=== PATIENT | male | born 1955 | race Caucasian/White ===

== ENCOUNTER 2017-02-02 10:07 | Emergency (ER) | payer MEDICAID ==
[~2017-02-02] VITALS: Ht 175.3 cm; Wt 100.7 kg
[2017-02-02] MEDS ORDERED: ONDANSETRON 2MG/ML, 2ML IVPush ONE (11:00)
[2017-02-02] MEDS ORDERED: MORPHINE SULFATE 4 MG/ML, 1ML IVPush PRN (11:00)
[2017-02-02] MEDS ORDERED: SODIUM CHLORIDE FLUSH 10ML SYR IVF ONE (11:00)
[2017-02-02] MEDS ORDERED: ONDANSETRON 2MG/ML, 2ML ONE (11:16)
[2017-02-02] MEDS ORDERED: morphine SULFATE 10 MG/ML, 1ML ONE (11:16)
[2017-02-02 11:23] LABS: HEMOGLOBIN 18.3 g/dL (13.7-18.0); WHITE BLOOD COUNT 8.4 x10^3/uL (3.4-10)
[2017-02-02 11:34] LABS: BLOOD UREA NITROGEN 8 mg/dL (7-18)
[2017-02-02 11:45] LABS: IS PT STATUS REG ER OR PRE ER? YES
[2017-02-02] MEDS ORDERED: AMLO10TA4 PO (11:51)
[2017-02-02] MEDS ORDERED: ATEN25TA PO (11:51)
[2017-02-02] MEDS ORDERED: NAPR500T4 PO (11:51)
[2017-02-02] MEDS ORDERED: ASPI81TA50 PO (11:51)
[2017-02-02] MEDS ORDERED: TRIA50CA PO (11:51)
[2017-02-02] MEDS ORDERED: OMNIPAQUE 350 MG/ML, 100ML BOTTLE ONE (12:19)
[2017-02-02 13:44] VITALS: BP 163/89
== END 2017-02-02 14:30 | disposition home or self-care (01) ==
LOC: ED 14:20
DX: S29.012A Strain of muscle and tendon of back wall of thorax, initial encounter (principal); I10 Essential (primary) hypertension; F17.210 Nicotine dependence, cigarettes, uncomplicated; G89.29 Other chronic pain; M54.9 Dorsalgia, unspecified; X58.XXXA Exposure to other specified factors, initial encounter; Y93.89 Activity, other specified; Y92.89 Other specified places as the place of occurrence of the external cause; Y99.8 Other external cause status
CPT/HCPCS: 36415; 71010; 71275; 74175; 80048; 81003; 82040; 84484; 85025; 93005; 96374; 96375; 99285; J2405; Q9967

== ENCOUNTER 2017-04-12 12:12 | Emergency (ER) | payer MEDICAID ==
[~2017-04-12] VITALS: Ht 175.3 cm; Wt 99.0 kg
[~2017-04-12 12:12] MED LIST: AMLO10TA4 PO; ASPI81TA50 PO; ATEN25TA PO; NAPR500T4 PO; TRIA50CA PO
[2017-04-12 12:14] VITALS: BP 152/92
[2017-04-12 13:40] LABS: BASOPHILS # (AUTO) 0.01 x10^3/uL (0-0.1); BASOPHILS % (AUTO) 0 % (0-1); EOSINOPHILS # (AUTO) 0.15 x10^3/uL (0-0.4); EOSINOPHILS % (AUTO) 2 % (1-7); LYMPHOCYTES # (AUTO) 1.57 x10^3/uL (1-3.4); LYMPHOCYTES % (AUTO) 15 % (22-44); MD NO; MEAN CORPUSCULAR HEMOGLOBIN 29.9 pg (27.5-34.5); MEAN CORPUSCULAR HGB CONC 33.8 g/dL (33.2-36.2); MEAN CORPUSCULAR VOLUME 88.6 fL (81-97); MEAN PLATELET VOLUME 7.8 fL (7.4-10.4); MONOCYTES # (AUTO) 0.61 x10^3/uL (0.2-0.8); MONOCYTES % (AUTO) 6 % (2-9); NEUTROPHILS % (AUTO) 77 % (42-75); PLATELET COUNT 350 x10^3/uL (130-400); RED BLOOD COUNT 6.07 x10^6/uL (4.38-5.82); RED CELL DISTRIBUTION WIDTH 13.6 % (9.4-14.8)
[2017-04-12 13:51] LABS: ALANINE AMINOTRANSFERASE 61 U/L (12-78); ALBUMIN 4.2 g/dL (3.4-5.0); ANION GAP 10 mmol/L (5-15); CALCIUM 8.6 mg/dL (8.5-10.1); CHLORIDE 92 mmol/L (98-107); CREATININE 1.32 mg/dL (0.7-1.3)
[2017-04-12 13:53] LABS: ALKALINE PHOSPHATASE 45 U/L (45-117); BILIRUBIN,TOTAL 1.1 mg/dL (0.2-1.0)
[2017-04-12 15:39] LABS: MICROSCOPIC INDICATED
[2017-04-12 15:44] LABS: CULTURE INDICATED? NO
== END 2017-04-12 17:45 | disposition home or self-care (01) ==
LOC: ED 17:14
DX: N23 Unspecified renal colic (principal); R31.9 Hematuria, unspecified; I10 Essential (primary) hypertension
CPT/HCPCS: 36415; 74018; 74176; 76770; 80053; 81001; 85025; 99285

== ENCOUNTER 2017-04-14 04:55 | Emergency (ER) | payer MEDICAID ==
[~2017-04-14] VITALS: Ht 175.3 cm; Wt 99.0 kg
[2017-04-14 06:13] LABS: MICROSCOPIC NOT IND
[2017-04-14 06:16] LABS: CULTURE INDICATED? NO
[2017-04-14 06:29] LABS: BASOPHILS # (AUTO) 0.02 x10^3/uL (0-0.1); BASOPHILS % (AUTO) 0 % (0-1); EOSINOPHILS # (AUTO) 0.16 x10^3/uL (0-0.4); EOSINOPHILS % (AUTO) 2 % (1-7); LYMPHOCYTES % (AUTO) 12 % (22-44); MD NO; MEAN CORPUSCULAR HEMOGLOBIN 30.3 pg (27.5-34.5); MEAN CORPUSCULAR HGB CONC 34.7 g/dL (33.2-36.2); MEAN CORPUSCULAR VOLUME 87.5 fL (81-97); MEAN PLATELET VOLUME 7.8 fL (7.4-10.4); MONOCYTES # (AUTO) 0.59 x10^3/uL (0.2-0.8); MONOCYTES % (AUTO) 8 % (2-9); NEUTROPHILS # (AUTO) 6.14 x10^3/uL (1.8-6.8); NEUTROPHILS % (AUTO) 79 % (42-75); PLATELET COUNT 322 x10^3/uL (130-400); RED BLOOD COUNT 5.65 x10^6/uL (4.38-5.82); RED CELL DISTRIBUTION WIDTH 13.5 % (9.4-14.8)
[2017-04-14 06:37] LABS: ALBUMIN 3.7 g/dL (3.4-5.0); ANION GAP 9 mmol/L (5-15); CALCIUM 8.4 mg/dL (8.5-10.1); CHLORIDE 92 mmol/L (98-107); CREATININE 1.14 mg/dL (0.7-1.3)
[2017-04-14] MEDS ORDERED: POTASSIUM CHLORIDE 20 MEQ TAB.ER.PRT PO ONE (07:00)
[2017-04-14 07:49] VITALS: BP 125/78
== END 2017-04-14 07:55 | disposition home or self-care (01) ==
LOC: ED 06:18
DX: R33.9 Retention of urine, unspecified (principal); E87.6 Hypokalemia; E87.1 Hypo-osmolality and hyponatremia; I10 Essential (primary) hypertension; Z88.0 Allergy status to penicillin
CPT/HCPCS: 36415; 80048; 81003; 82040; 85025; 99284

== ENCOUNTER 2017-04-20 02:12 | Emergency (ER) | payer MEDICAID ==
[~2017-04-20] VITALS: Ht 175.3 cm; Wt 96.4 kg
[2017-04-20 03:10] LABS: ALBUMIN 3.6 g/dL (3.4-5.0); ANION GAP 9 mmol/L (5-15); CALCIUM 8.7 mg/dL (8.5-10.1); CHLORIDE 105 mmol/L (98-107); CREATININE 1.32 mg/dL (0.7-1.3)
[2017-04-20 03:56] LABS: BASOPHILS # (AUTO) 0.04 x10^3/uL (0-0.1); BASOPHILS % (AUTO) 0 % (0-1); EOSINOPHILS # (AUTO) 0.41 x10^3/uL (0-0.4); EOSINOPHILS % (AUTO) 4 % (1-7); LYMPHOCYTES % (AUTO) 17 % (22-44); MD NO; MEAN CORPUSCULAR HEMOGLOBIN 30.3 pg (27.5-34.5); MEAN CORPUSCULAR HGB CONC 33.8 g/dL (33.2-36.2); MEAN CORPUSCULAR VOLUME 89.5 fL (81-97); MEAN PLATELET VOLUME 7.9 fL (7.4-10.4); MONOCYTES # (AUTO) 0.72 x10^3/uL (0.2-0.8); MONOCYTES % (AUTO) 6 % (2-9); NEUTROPHILS # (AUTO) 8.13 x10^3/uL (1.8-6.8); NEUTROPHILS % (AUTO) 73 % (42-75); PLATELET COUNT 354 x10^3/uL (130-400); RED BLOOD COUNT 5.82 x10^6/uL (4.38-5.82)
[2017-04-20 04:21] LABS: CULTURE INDICATED? YES; MICROSCOPIC INDICATED
[2017-04-20] MEDS ORDERED: CIPROFLOXACIN 500 MG TABLET PO ONE (04:30)
[2017-04-20] MEDS ORDERED: POTASSIUM CHLORIDE 20 MEQ TAB.ER.PRT PO ONE (04:30)
[2017-04-20] MEDS ORDERED: CIPROFLOXACIN 500 MG TABLET ONE (04:37)
[2017-04-20] MEDS ORDERED: POTASSIUM CHLORIDE 20 MEQ TAB.ER.PRT ONE (04:37)
[2017-04-20 04:54] VITALS: BP 146/81
== END 2017-04-20 04:56 | disposition home or self-care (01) ==
LOC: ED 03:15
DX: N30.01 Acute cystitis with hematuria (principal); E87.6 Hypokalemia; I10 Essential (primary) hypertension; F17.210 Nicotine dependence, cigarettes, uncomplicated
CPT/HCPCS: 36415; 80048; 81001; 82040; 85025; 87077; 87086; 87186; 99284

== ENCOUNTER → 2017-05-30 | Outpatient (CLI) | payer MEDICAID | LOC: CFH 08:53 | PROVIDERS: ATTEND Physician Assistant | DX: Z02.9 Encounter for administrative examinations, unspecified (principal) ==

== ENCOUNTER 2017-05-31 15:53 | Inpatient (IN) | payer MEDICAID ==
[~2017-05-31] VITALS: Ht 175.3 cm; Wt 87.0 kg
[2017-05-31 17:24] LABS: MEAN CORPUSCULAR HEMOGLOBIN 29.1 pg (27.5-34.5); MEAN CORPUSCULAR HGB CONC 33.2 g/dL (33.2-36.2); MEAN CORPUSCULAR VOLUME 87.7 fL (81-97); MEAN PLATELET VOLUME 8.6 fL (7.4-10.4); PLATELET COUNT 283 x10^3/uL (130-400); RED BLOOD COUNT 5.93 x10^6/uL (4.38-5.82); RED CELL DISTRIBUTION WIDTH 13.5 % (9.4-14.8)
[2017-05-31 17:29] LABS: CULTURE INDICATED? YES; MICROSCOPIC INDICATED
[2017-05-31] MEDS ORDERED: CEFTRIAXONE PMX 1GM/50ML 50 ML IVPB ONE (17:30)
[2017-05-31 17:33] LABS: ALBUMIN 3.3 g/dL (3.4-5.0); ANION GAP 18 mmol/L (5-15); CALCIUM 7.6 mg/dL (8.5-10.1); CHLORIDE 101 mmol/L (98-107)
[2017-05-31 17:45] LABS: ALANINE AMINOTRANSFERASE 29 U/L (12-78); ALKALINE PHOSPHATASE 61 U/L (45-117); BILIRUBIN,TOTAL 0.7 mg/dL (0.2-1.0); CREATININE 9.75 mg/dL (0.7-1.3); FREE T4 (FREE THYROXINE) 1.14 ng/dL (0.76-1.46); TOTAL PROTEIN 7.4 g/dL (6.4-8.2)
[2017-05-31 18:17] LABS: BASOPHILS # (AUTO) 0.01 x10^3/uL (0-0.1); BASOPHILS % (AUTO) 0 % (0-1); EOSINOPHILS # (AUTO) 0.06 x10^3/uL (0-0.4); EOSINOPHILS % (AUTO) 0 % (1-7); LYMPHOCYTES # (AUTO) 0.76 x10^3/uL (1-3.4); LYMPHOCYTES % (AUTO) 4 % (22-44); MD SCAN; MONOCYTES # (AUTO) 1.12 x10^3/uL (0.2-0.8); MONOCYTES % (AUTO) 6 % (2-9); NEUTROPHILS # (AUTO) 15.97 x10^3/uL (1.8-6.8); NEUTROPHILS % (AUTO) 89 % (42-75)
[2017-05-31] MEDS ORDERED: CEFTRIAXONE PMX 1GM/50ML 50 ML ONE (19:39)
[2017-05-31] MEDS ORDERED: POLYETHYLENE GLYCOL 17 GM PACKET PO PRN (20:00)
[2017-05-31] MEDS ORDERED: CEFTRIAXONE PMX 1GM/50ML 50 ML IV SCH (20:00)
[2017-05-31] MEDS ORDERED: hydrALAzine 20 MG/ML, 1ML IVPush PRN (20:00)
[2017-05-31] MEDS ORDERED: ACETAMINOPHEN 325 MG TABLET PO PRN (20:00)
[2017-05-31] MEDS ORDERED: BISACODYL 10 MG SUPP PR PRN (20:00)
[2017-05-31] MEDS: SODIUM BICARBONATE 8.4% 150 MEQ in DEXTROSE 5% 1,000 ML IV SCH (20:19)
[2017-05-31] MEDS: HEPARIN 5,000 UNITS/ML, 1ML SQ SCH (23:45)
[2017-05-31] MEDS: NICOTINE 14MG/24 HR PATCH.TD24 TD SCH (23:46)
[2017-05-31] MEDS: ONDANSETRON 2MG/ML, 2ML IVPush PRN (23:46)
[2017-06-01] VITALS (7 sets, daily range): BP systolic 81–101; BP diastolic 46–66
[2017-06-01] MEDS: SODIUM BICARBONATE 8.4% 150 MEQ in DEXTROSE 5% 1,000 ML IV SCH (05:09)
[2017-06-01] MEDS: ONDANSETRON 2MG/ML, 2ML IVPush PRN ×2 (05:24→13:14)
[2017-06-01 05:47] LABS: BASOPHILS # (AUTO) 0.01 x10^3/uL (0-0.1); BASOPHILS % (AUTO) 0 % (0-1); EOSINOPHILS # (AUTO) 0.02 x10^3/uL (0-0.4); EOSINOPHILS % (AUTO) 0 % (1-7); LYMPHOCYTES # (AUTO) 0.77 x10^3/uL (1-3.4); LYMPHOCYTES % (AUTO) 5 % (22-44); MD NO; MEAN CORPUSCULAR HEMOGLOBIN 29.4 pg (27.5-34.5); MEAN CORPUSCULAR HGB CONC 34.5 g/dL (33.2-36.2); MEAN CORPUSCULAR VOLUME 85.3 fL (81-97); MEAN PLATELET VOLUME 8.8 fL (7.4-10.4); MONOCYTES # (AUTO) 1.23 x10^3/uL (0.2-0.8); MONOCYTES % (AUTO) 8 % (2-9); NEUTROPHILS # (AUTO) 13.21 x10^3/uL (1.8-6.8); NEUTROPHILS % (AUTO) 87 % (42-75); PLATELET COUNT 235 x10^3/uL (130-400); RED BLOOD COUNT 4.91 x10^6/uL (4.38-5.82); RED CELL DISTRIBUTION WIDTH 13.8 % (9.4-14.8)
[2017-06-01 05:54] LABS: ALBUMIN 2.7 g/dL (3.4-5.0); CALCIUM 6.9 mg/dL (8.5-10.1); CHLORIDE 99 mmol/L (98-107)
[2017-06-01 06:01] LABS: ALANINE AMINOTRANSFERASE 20 U/L (12-78); ALKALINE PHOSPHATASE 50 U/L (45-117); ANION GAP 16 mmol/L (5-15); BILIRUBIN,TOTAL 0.8 mg/dL (0.2-1.0); CREATININE 7.27 mg/dL (0.7-1.3)
[2017-06-01] MEDS ORDERED: POTASSIUM CHLORIDE 20 MEQ TAB.ER.PRT PO ONE ×2 (08:30→15:30)
[2017-06-01] MEDS ORDERED: SODIUM CHLORIDE 0.9% 1,000 ML IV SCH (08:30)
[2017-06-01] MEDS ORDERED: CEFTRIAXONE 2 GM in SODIUM CHLORIDE 0.9% 50 ML IV SCH (09:00)
[2017-06-01] MEDS ORDERED: ALBUMIN HUMAN 25%, 25GM/100ML IV PRN (09:30)
[2017-06-01] MEDS ORDERED: POTASSIUM CHLORIDE 20 MEQ TAB.ER.PRT ONE (12:50)
[2017-06-01] MEDS: POTASSIUM CHLORIDE 40 MEQ in SODIUM CHLORIDE 0.9% 1,000 ML IV SCH (12:58)
[2017-06-01] MEDS: SENNA/DOCUSATE TABLET PO SCH (12:59)
[2017-06-01] MEDS: ASPIRIN 81 MG TABLET EC PO SCH (12:59)
[2017-06-01] MEDS: HEPARIN 5,000 UNITS/ML, 1ML SQ SCH ×2 (13:00→19:58)
[2017-06-01] MEDS ORDERED: MAGNESIUM SULFATE PMX 2GM/50ML 50 ML IV ONE (13:30)
[2017-06-01] MEDS ORDERED: PHARMACY MAY ADJ FOR RENAL FX MC PRN (15:30)
[2017-06-01] MEDS: CEFTRIAXONE PMX 2GM/50ML 50 ML IVPB SCH (16:46)
[2017-06-01] MEDS: PANTOPRAZOLE 40 MG IV IVPush SCH (16:46)
[2017-06-01] MEDS: NICOTINE 14MG/24 HR PATCH.TD24 TD SCH (19:58)
[2017-06-02] MEDS: POTASSIUM CHLORIDE 40 MEQ in SODIUM CHLORIDE 0.9% 1,000 ML IV SCH (00:29)
[2017-06-02 02:23] VITALS: BP 98/53
[2017-06-02] MEDS: OXYcodone IR 5MG TABLET PO PRN (03:30)
[2017-06-02] MEDS: PANTOPRAZOLE 40 MG IV IVPush SCH ×2 (04:44→15:51)
[2017-06-02] MEDS: HEPARIN 5,000 UNITS/ML, 1ML SQ SCH ×3 (04:45→23:04)
[2017-06-02 05:25] LABS: ANION GAP 9 mmol/L (5-15); CALCIUM 6.9 mg/dL (8.5-10.1); CHLORIDE 108 mmol/L (98-107); CREATININE 5.26 mg/dL (0.7-1.3)
[2017-06-02 05:35] LABS: BASOPHILS # (AUTO) 0.01 x10^3/uL (0-0.1); BASOPHILS % (AUTO) 0 % (0-1); EOSINOPHILS # (AUTO) 0.05 x10^3/uL (0-0.4); EOSINOPHILS % (AUTO) 1 % (1-7); LYMPHOCYTES # (AUTO) 0.74 x10^3/uL (1-3.4); LYMPHOCYTES % (AUTO) 7 % (22-44); MD NO; MEAN CORPUSCULAR HEMOGLOBIN 29.6 pg (27.5-34.5); MEAN CORPUSCULAR HGB CONC 33.9 g/dL (33.2-36.2); MEAN CORPUSCULAR VOLUME 87.3 fL (81-97); MEAN PLATELET VOLUME 8.7 fL (7.4-10.4); MONOCYTES # (AUTO) 0.81 x10^3/uL (0.2-0.8); MONOCYTES % (AUTO) 8 % (2-9); NEUTROPHILS # (AUTO) 8.53 x10^3/uL (1.8-6.8); NEUTROPHILS % (AUTO) 84 % (42-75); PLATELET COUNT 210 x10^3/uL (130-400); RED BLOOD COUNT 4.01 x10^6/uL (4.38-5.82); RED CELL DISTRIBUTION WIDTH 14.1 % (9.4-14.8)
[2017-06-02 08:00] VITALS: BP 99/54
[2017-06-02] MEDS: TAMSULOSIN 0.4 MG CAP.ER.24H PO SCH (09:00)
[2017-06-02] MEDS: SENNA/DOCUSATE TABLET PO SCH (09:00)
[2017-06-02] MEDS: ASPIRIN 81 MG TABLET EC PO SCH (09:00)
[2017-06-02] MEDS: ONDANSETRON 2MG/ML, 2ML IVPush PRN (09:10)
[2017-06-02 12:14] VITALS: BP 113/67
[2017-06-02] MEDS ORDERED: POTASSIUM CHLORIDE 40 MEQ in SODIUM CHLORIDE 0.9% 1,000 ML IV SCH (15:00)
[2017-06-02] MEDS: NS + 40MEQ KCL 1,000 ML IV SCH (15:30)
[2017-06-02] MEDS: CEFTRIAXONE PMX 2GM/50ML 50 ML IVPB SCH (15:49)
[2017-06-02] MEDS ORDERED: MIDAZOLAM 1 MG/ML, 2ML ONE (19:16)
[2017-06-02] MEDS ORDERED: FENTANYL PF 100 MCG/2ML ONE (19:17)
[2017-06-02] MEDS ORDERED: DEXAMETHASONE 4 MG/ML, 1ML ONE (19:49)
[2017-06-02] MEDS ORDERED: PROPOFOL 10 MG/ML, 20ML ONE ×2 (19:49→20:00)
[2017-06-02] MEDS ORDERED: ONDANSETRON 2MG/ML, 2ML ONE (19:49)
[2017-06-02] MEDS ORDERED: OMNIPAQUE 350 MG/ML, 50 ML BOTTLE IV ONE ×2 (20:00→20:01)
[2017-06-02 20:51] VITALS: BP 117/72
[2017-06-02] MEDS: NICOTINE 14MG/24 HR PATCH.TD24 TD SCH (21:30)
[2017-06-03 01:48] VITALS: BP 114/71
[2017-06-03] MEDS: OXYcodone IR 5MG TABLET PO PRN (04:30)
[2017-06-03] MEDS: PANTOPRAZOLE 40 MG IV IVPush SCH (04:32)
[2017-06-03 05:35] LABS: BASOPHILS # (AUTO) 0.02 x10^3/uL (0-0.1); BASOPHILS % (AUTO) 0 % (0-1); EOSINOPHILS % (AUTO) 0 % (1-7); LYMPHOCYTES # (AUTO) 0.43 x10^3/uL (1-3.4); LYMPHOCYTES % (AUTO) 6 % (22-44); MD NO; MEAN CORPUSCULAR HEMOGLOBIN 29.2 pg (27.5-34.5); MEAN CORPUSCULAR HGB CONC 33.5 g/dL (33.2-36.2); MEAN CORPUSCULAR VOLUME 87.2 fL (81-97); MEAN PLATELET VOLUME 8.8 fL (7.4-10.4); MONOCYTES # (AUTO) 0.32 x10^3/uL (0.2-0.8); MONOCYTES % (AUTO) 4 % (2-9); NEUTROPHILS # (AUTO) 6.79 x10^3/uL (1.8-6.8); NEUTROPHILS % (AUTO) 90 % (42-75); PLATELET COUNT 209 x10^3/uL (130-400); RED BLOOD COUNT 4.08 x10^6/uL (4.38-5.82); RED CELL DISTRIBUTION WIDTH 14.5 % (9.4-14.8)
[2017-06-03] MEDS: NS + 40MEQ KCL 1,000 ML IV SCH (05:37)
[2017-06-03 05:38] LABS: ANION GAP 10 mmol/L (5-15); CALCIUM 7.9 mg/dL (8.5-10.1); CHLORIDE 108 mmol/L (98-107); CREATININE 3.66 mg/dL (0.7-1.3)
[2017-06-03] MEDS: HEPARIN 5,000 UNITS/ML, 1ML SQ SCH ×3 (07:00→22:56)
[2017-06-03 08:00] VITALS: BP 137/75
[2017-06-03] MEDS: SENNA/DOCUSATE TABLET PO SCH (08:24)
[2017-06-03] MEDS: ASPIRIN 81 MG TABLET EC PO SCH (08:24)
[2017-06-03] MEDS: TAMSULOSIN 0.4 MG CAP.ER.24H PO SCH ×2 (08:24→08:49)
[2017-06-03] MEDS ORDERED: POTASSIUM CHLORIDE 40 MEQ in SODIUM CHLORIDE 0.9% 1,000 ML IV SCH (08:30)
[2017-06-03 10:18] LABS: OCCULT BLOOD NEGATIVE (NEGATIVE)
[2017-06-03] MEDS: SODIUM CHLORIDE 0.9% 1,000 ML IV SCH (13:08)
[2017-06-03 13:21] VITALS: BP 115/68
[2017-06-03] MEDS: CEFTRIAXONE PMX 2GM/50ML 50 ML IVPB SCH (16:02)
[2017-06-03] MEDS: PANTOPRAZOLE 20MG TABLET PO SCH (16:02)
[2017-06-03 19:05] VITALS: BP 122/70
[2017-06-03] MEDS: NICOTINE 14MG/24 HR PATCH.TD24 TD SCH (21:30)
[2017-06-04 02:06] VITALS: BP 158/93
[2017-06-04] MEDS: SODIUM CHLORIDE 0.9% 1,000 ML IV SCH (03:50)
[2017-06-04] MEDS: PANTOPRAZOLE 20MG TABLET PO SCH ×2 (03:50→16:10)
[2017-06-04] MEDS: OXYcodone IR 5MG TABLET PO PRN (03:59)
[2017-06-04 04:42] LABS: ANION GAP 8 mmol/L (5-15); CALCIUM 7.1 mg/dL (8.5-10.1); CHLORIDE 113 mmol/L (98-107); CREATININE 2.91 mg/dL (0.7-1.3)
[2017-06-04 07:41] VITALS: BP 148/75
[2017-06-04] MEDS: SENNA/DOCUSATE TABLET PO SCH (09:07)
[2017-06-04] MEDS: TAMSULOSIN 0.4 MG CAP.ER.24H PO SCH (09:07)
[2017-06-04] MEDS: ASPIRIN 81 MG TABLET EC PO SCH (09:08)
[2017-06-04] MEDS: HEPARIN 5,000 UNITS/ML, 1ML SQ SCH ×2 (09:08→16:56)
[2017-06-04] MEDS: SODIUM CHLORIDE 0.45% 1,000 ML IV SCH (12:49)
[2017-06-04 14:36] VITALS: BP 136/76
[2017-06-04] MEDS: CEFTRIAXONE PMX 2GM/50ML 50 ML IVPB SCH (16:56)
[2017-06-04 19:56] VITALS: BP 145/78
[2017-06-04] MEDS: NICOTINE 14MG/24 HR PATCH.TD24 TD SCH (21:30)
[2017-06-05] MEDS: SODIUM CHLORIDE 0.45% 1,000 ML IV SCH ×2 (00:48→16:30)
[2017-06-05] MEDS: HEPARIN 5,000 UNITS/ML, 1ML SQ SCH ×3 (00:48→16:29)
[2017-06-05 02:00] VITALS: BP 127/71
[2017-06-05] MEDS: PANTOPRAZOLE 20MG TABLET PO SCH ×2 (04:32→16:29)
[2017-06-05 05:19] LABS: ALANINE AMINOTRANSFERASE 23 U/L (12-78); ALBUMIN 2.6 g/dL (3.4-5.0); ANION GAP 9 mmol/L (5-15); CALCIUM 7.4 mg/dL (8.5-10.1); CHLORIDE 111 mmol/L (98-107); CREATININE 2.35 mg/dL (0.7-1.3)
[2017-06-05 05:24] LABS: ALKALINE PHOSPHATASE 40 U/L (45-117); BILIRUBIN,TOTAL 0.4 mg/dL (0.2-1.0); GAMMA GLUTAMYL TRANSPEPTIDASE 14 U/L (15-85)
[2017-06-05 05:27] LABS: BASOPHILS # (AUTO) 0.05 x10^3/uL (0-0.1); BASOPHILS % (AUTO) 1 % (0-1); EOSINOPHILS # (AUTO) 0.35 x10^3/uL (0-0.4); EOSINOPHILS % (AUTO) 7 % (1-7); LYMPHOCYTES # (AUTO) 1.17 x10^3/uL (1-3.4); LYMPHOCYTES % (AUTO) 22 % (22-44); MD NO; MEAN CORPUSCULAR HEMOGLOBIN 29.6 pg (27.5-34.5); MEAN CORPUSCULAR HGB CONC 33.9 g/dL (33.2-36.2); MEAN CORPUSCULAR VOLUME 87.3 fL (81-97); MEAN PLATELET VOLUME 7.8 fL (7.4-10.4); MONOCYTES # (AUTO) 0.35 x10^3/uL (0.2-0.8); MONOCYTES % (AUTO) 7 % (2-9); NEUTROPHILS # (AUTO) 3.51 x10^3/uL (1.8-6.8); NEUTROPHILS % (AUTO) 65 % (42-75); PLATELET COUNT 233 x10^3/uL (130-400); RED CELL DISTRIBUTION WIDTH 14.2 % (9.4-14.8)
[2017-06-05 07:05] VITALS: BP 172/83
[2017-06-05] MEDS: ASPIRIN 81 MG TABLET EC PO SCH (08:42)
[2017-06-05] MEDS: SENNA/DOCUSATE TABLET PO SCH (08:43)
[2017-06-05] MEDS: TAMSULOSIN 0.4 MG CAP.ER.24H PO SCH (08:43)
[2017-06-05] MEDS ORDERED: MAGNESIUM SULFATE PMX 4GM/100M 100 ML IV ONE (09:00)
[2017-06-05] MEDS: MAGNESIUM OXIDE 400 MG TABLET PO SCH ×2 (09:56→21:00)
[2017-06-05 10:27] VITALS: BP 125/70
[2017-06-05 13:01] VITALS: BP 135/81
[2017-06-05] MEDS: CEFTRIAXONE PMX 2GM/50ML 50 ML IVPB SCH (17:22)
[2017-06-05 19:15] VITALS: BP 149/91
[2017-06-05] MEDS: NICOTINE 14MG/24 HR PATCH.TD24 TD SCH (21:01)
[2017-06-06] MEDS: HEPARIN 5,000 UNITS/ML, 1ML SQ SCH ×3 (00:34→17:39)
[2017-06-06 01:51] VITALS: BP 165/90
[2017-06-06] MEDS: PANTOPRAZOLE 20MG TABLET PO SCH ×2 (04:56→16:32)
[2017-06-06 05:32] LABS: BASOPHILS # (AUTO) 0.03 x10^3/uL (0-0.1); BASOPHILS % (AUTO) 1 % (0-1); EOSINOPHILS # (AUTO) 0.28 x10^3/uL (0-0.4); EOSINOPHILS % (AUTO) 6 % (1-7); LYMPHOCYTES # (AUTO) 1.01 x10^3/uL (1-3.4); LYMPHOCYTES % (AUTO) 20 % (22-44); MD NO; MEAN CORPUSCULAR HEMOGLOBIN 29.5 pg (27.5-34.5); MEAN CORPUSCULAR HGB CONC 33.9 g/dL (33.2-36.2); MEAN CORPUSCULAR VOLUME 87.1 fL (81-97); MEAN PLATELET VOLUME 7.3 fL (7.4-10.4); MONOCYTES # (AUTO) 0.41 x10^3/uL (0.2-0.8); MONOCYTES % (AUTO) 8 % (2-9); NEUTROPHILS # (AUTO) 3.32 x10^3/uL (1.8-6.8); NEUTROPHILS % (AUTO) 66 % (42-75); PLATELET COUNT 235 x10^3/uL (130-400); RED BLOOD COUNT 4.18 x10^6/uL (4.38-5.82); RED CELL DISTRIBUTION WIDTH 14.5 % (9.4-14.8)
[2017-06-06 05:33] LABS: ALANINE AMINOTRANSFERASE 61 U/L (12-78); ALBUMIN 2.7 g/dL (3.4-5.0); ANION GAP 7 mmol/L (5-15); CALCIUM 7.1 mg/dL (8.5-10.1); CHLORIDE 109 mmol/L (98-107)
[2017-06-06 05:36] LABS: ALKALINE PHOSPHATASE 44 U/L (45-117); BILIRUBIN,TOTAL 0.6 mg/dL (0.2-1.0); CREATININE 1.91 mg/dL (0.7-1.3)
[2017-06-06 08:00] VITALS: BP 148/93
[2017-06-06] MEDS: SENNA/DOCUSATE TABLET PO SCH (09:25)
[2017-06-06] MEDS: TAMSULOSIN 0.4 MG CAP.ER.24H PO SCH (09:25)
[2017-06-06] MEDS: MAGNESIUM OXIDE 400 MG TABLET PO SCH ×2 (09:25→20:09)
[2017-06-06] MEDS: ASPIRIN 81 MG TABLET EC PO SCH (09:25)
[2017-06-06] MEDS ORDERED: ERGOCALCIFEROL 50,000 UNIT CAPSULE PO SCH (11:30)
[2017-06-06 14:30] VITALS: BP 126/68
[2017-06-06] MEDS: CEFTRIAXONE PMX 2GM/50ML 50 ML IVPB SCH (16:32)
[2017-06-06] MEDS: OXYcodone IR 5MG TABLET PO PRN (17:45)
[2017-06-06 20:00] VITALS: BP 132/72
[2017-06-06] MEDS: NICOTINE 14MG/24 HR PATCH.TD24 TD SCH (20:09)
[2017-06-07 02:30] VITALS: BP 128/70
[2017-06-07] MEDS: PANTOPRAZOLE 20MG TABLET PO SCH ×2 (05:24→18:00)
[2017-06-07] MEDS: HEPARIN 5,000 UNITS/ML, 1ML SQ SCH ×3 (05:24→16:43)
[2017-06-07 07:20] VITALS: BP 147/91
[2017-06-07] MEDS: SENNA/DOCUSATE TABLET PO SCH ×2 (08:50→09:12)
[2017-06-07] MEDS: TAMSULOSIN 0.4 MG CAP.ER.24H PO SCH (08:50)
[2017-06-07] MEDS: MAGNESIUM OXIDE 400 MG TABLET PO SCH ×2 (09:02→21:20)
[2017-06-07] MEDS: ASPIRIN 81 MG TABLET EC PO SCH (09:31)
[2017-06-07 13:03] LABS: MICROSCOPIC INDICATED
[2017-06-07 13:17] LABS: CULTURE INDICATED? YES
[2017-06-07 15:01] VITALS: BP 153/92
[2017-06-07] MEDS: OXYcodone IR 5MG TABLET PO PRN ×2 (15:16→21:20)
[2017-06-07] MEDS: CEFTRIAXONE PMX 2GM/50ML 50 ML IVPB SCH (16:43)
[2017-06-07 20:45] VITALS: BP 156/95
[2017-06-07] MEDS: NICOTINE 14MG/24 HR PATCH.TD24 TD SCH (21:21)
[2017-06-08] MEDS: HEPARIN 5,000 UNITS/ML, 1ML SQ SCH ×2 (01:02→08:34)
[2017-06-08 03:10] VITALS: BP 146/93
[2017-06-08] MEDS: PANTOPRAZOLE 20MG TABLET PO SCH (05:42)
[2017-06-08 06:11] LABS: BASOPHILS # (AUTO) 0.04 x10^3/uL (0-0.1); BASOPHILS % (AUTO) 1 % (0-1); EOSINOPHILS # (AUTO) 0.29 x10^3/uL (0-0.4); EOSINOPHILS % (AUTO) 7 % (1-7); LYMPHOCYTES # (AUTO) 1.04 x10^3/uL (1-3.4); LYMPHOCYTES % (AUTO) 26 % (22-44); MD NO; MEAN CORPUSCULAR HEMOGLOBIN 29.4 pg (27.5-34.5); MEAN CORPUSCULAR VOLUME 86.4 fL (81-97); MEAN PLATELET VOLUME 7.3 fL (7.4-10.4); MONOCYTES # (AUTO) 0.44 x10^3/uL (0.2-0.8); MONOCYTES % (AUTO) 11 % (2-9); NEUTROPHILS # (AUTO) 2.27 x10^3/uL (1.8-6.8); NEUTROPHILS % (AUTO) 56 % (42-75); PLATELET COUNT 213 x10^3/uL (130-400); RED BLOOD COUNT 4.04 x10^6/uL (4.38-5.82); RED CELL DISTRIBUTION WIDTH 14.1 % (9.4-14.8)
[2017-06-08 06:24] LABS: ALANINE AMINOTRANSFERASE 103 U/L (12-78); ALBUMIN 2.8 g/dL (3.4-5.0); ANION GAP 5 mmol/L (5-15); CALCIUM 7.1 mg/dL (8.5-10.1); CHLORIDE 108 mmol/L (98-107); CREATININE 1.76 mg/dL (0.7-1.3)
[2017-06-08 06:26] LABS: ALKALINE PHOSPHATASE 53 U/L (45-117); BILIRUBIN,TOTAL 0.5 mg/dL (0.2-1.0); TOTAL PROTEIN 5.9 g/dL (6.4-8.2)
[2017-06-08 06:55] VITALS: BP 145/79
[2017-06-08] MEDS: ASPIRIN 81 MG TABLET EC PO SCH (08:31)
[2017-06-08] MEDS: TAMSULOSIN 0.4 MG CAP.ER.24H PO SCH (08:32)
[2017-06-08] MEDS: MAGNESIUM OXIDE 400 MG TABLET PO SCH (08:32)
[2017-06-08] MEDS: SENNA/DOCUSATE TABLET PO SCH (08:33)
[2017-06-08] MEDS ORDERED: AMLO10TA4 PO (12:12)
[2017-06-08] MEDS ORDERED: CEFD300C37 PO (12:12)
[2017-06-08] MEDS ORDERED: TAMS-11 PO (12:12)
[2017-06-08] MEDS ORDERED: PNEUMOCOCCAL 23 VACCINE IM-VACC ONE (12:30)
== END 2017-06-08 14:10 | disposition home or self-care (01) | DRG 871 ==
LOC: ED 19:57 → EDIP 19:58 → ED 20:11 → 4EST 21:27 → DCLOUNGE 06-08 13:45
PROVIDERS: ADMIT Family Medicine; ATTEND Family Medicine
PROC: 02HV33Z Insertion of Infusion Device into Superior Vena Cava, Percutaneous Approach (ICD-10-PCS; principal; 2017-05-31)
PROC: B548ZZA Ultrasonography of Superior Vena Cava, Guidance (ICD-10-PCS; 2017-05-31)
PROC: 5A1D70Z Performance of Urinary Filtration, Intermittent, Less than 6 Hours Per Day (ICD-10-PCS; 2017-05-31)
PROC: 5A1D70Z Performance of Urinary Filtration, Intermittent, Less than 6 Hours Per Day (ICD-10-PCS; 2017-06-01)
PROC: 5A1D70Z Performance of Urinary Filtration, Intermittent, Less than 6 Hours Per Day (ICD-10-PCS; 2017-06-02)
PROC: 0T768DZ Dilation of Right Ureter with Intraluminal Device, Via Natural or Artificial Opening Endoscopic (ICD-10-PCS; 2017-06-02)
DX: A41.9 Sepsis, unspecified organism (principal); R65.21 Severe sepsis with septic shock; K85.20 Alcohol induced acute pancreatitis without necrosis or infection; N17.9 Acute kidney failure, unspecified; E44.1 Mild protein-calorie malnutrition; E87.1 Hypo-osmolality and hyponatremia; N13.6 Pyonephrosis; N20.1 Calculus of ureter; E83.42 Hypomagnesemia; B96.20 Unspecified Escherichia coli [E. coli] as the cause of diseases classified elsewhere; D64.9 Anemia, unspecified; E87.6 Hypokalemia; F12.90 Cannabis use, unspecified, uncomplicated; F17.210 Nicotine dependence, cigarettes, uncomplicated; I10 Essential (primary) hypertension; K21.9 Gastro-esophageal reflux disease without esophagitis; K52.9 Noninfective gastroenteritis and colitis, unspecified; N28.89 Other specified disorders of kidney and ureter; N40.1 Benign prostatic hyperplasia with lower urinary tract symptoms; Z66 Do not resuscitate; Z80.7 Family history of other malignant neoplasms of lymphoid, hematopoietic and related tissues; Z87.442 Personal history of urinary calculi; Z87.440 Personal history of urinary (tract) infections; Z98.1 Arthrodesis status; Z99.2 Dependence on renal dialysis; Z68.28 Body mass index [BMI] 28.0-28.9, adult
CPT/HCPCS: 36415; 36556; 71045; 71046; 74176; 74420; 76770; 76937; 77001; 80048; 80053; 81001; 82140; 82272; 82306; 82977; 83605; 83690; 83735; 84100; 84132; 84439; 84443; 84550; 85025; 86704; 86706; 87040; 87077; 87086; 87186; 87340; 90732; 93005; 96365; C1894; J0696; J1100; J1644; J2250; J2405; J2704; J3010; J3480; J7070; Q9967; C1751; C1769; C2617; C9113; J1642; J3475; J7030

== ENCOUNTER → 2017-07-21 | Outpatient (CLI) | payer MEDICAID ==
[~2017-07-21] MED LIST changes: +CEFD300C37 PO; +FENTANYL PF 100 MCG/2ML IV PRN; +FENTANYL PF 100 MCG/2ML ONE; +GADOBUTROL 10 MMOL/10 ML VIAL ONE; +HYDROmorphone 1 MG/ML, 1ML IV PRN; +LABETALOL 5MG/ML, 20ML IV PRN; +MIDAZOLAM 1 MG/ML, 5ML ONE; +NAPR-685 PO; -NAPR500T4 PO; +ONDANSETRON 2MG/ML, 2ML IVPush PRN; +OXYcodone 5 MG/5 ML ORAL.SOL UDC PO PRN; +PROMETHAZINE 12.5 MG SUPP PR PRN; +TAMS-11 PO; +hydrALAzine 20 MG/ML, 1ML IV PRN
== END | disposition home or self-care (01) ==
LOC: RAD 08:44
PROVIDERS: ATTEND Physician Assistant
DX: N13.30 Unspecified hydronephrosis (principal); K80.20 Calculus of gallbladder without cholecystitis without obstruction; N40.0 Benign prostatic hyperplasia without lower urinary tract symptoms; N28.89 Other specified disorders of kidney and ureter
CPT/HCPCS: 72197; 74183; 99156; 99157; A9585; J2250; J3010

== ENCOUNTER → 2017-11-25 | Outpatient (CLI) | payer MEDICAID ==
[~2017-11-25] MED LIST changes: -FENTANYL PF 100 MCG/2ML IV PRN; -FENTANYL PF 100 MCG/2ML ONE; -GADOBUTROL 10 MMOL/10 ML VIAL ONE; -HYDROmorphone 1 MG/ML, 1ML IV PRN; -LABETALOL 5MG/ML, 20ML IV PRN; -MIDAZOLAM 1 MG/ML, 5ML ONE; -ONDANSETRON 2MG/ML, 2ML IVPush PRN; -OXYcodone 5 MG/5 ML ORAL.SOL UDC PO PRN; -PROMETHAZINE 12.5 MG SUPP PR PRN; -hydrALAzine 20 MG/ML, 1ML IV PRN
== END | disposition home or self-care (01) ==
LOC: CFH 10:47
PROVIDERS: ATTEND Urology
DX: N20.0 Calculus of kidney (principal)
CPT/HCPCS: 74018

== ENCOUNTER → 2018-05-09 | Outpatient (CLI) | payer MEDICAID | END | disposition home or self-care (01) | LOC: CFH 11:13 | PROVIDERS: ATTEND Urology | DX: M47.814 Spondylosis without myelopathy or radiculopathy, thoracic region (principal); C64.9 Malignant neoplasm of unspecified kidney, except renal pelvis | CPT/HCPCS: 71046 ==